=== PATIENT | female | born 1940 | race Caucasian/White ===

== ENCOUNTER 2018-03-15 09:23 | Emergency (ER) | payer MEDICARE ==
[2018-03-15 09:41] VITALS: BP 138/70
[2018-03-15] MEDS ORDERED: RABIES VACCINE 2.5 UNIT SYRINGE IM ONE (10:01)
--- NOTE | 2018-03-15 10:18 | ED Physician Documentation ---
History of Present Illness - Stated complaint Stated Complaint: BAT IN HOME/RABIES SHOT - Chief complaint Chief Complaint: General - History obtained from History obtained from: Patient - History of Present Illness Timing: How many days ago (2) - Additonal information Additional information: 77-year-old female who [place] in a [place] the [place] has had bats in her home and this is the fourth exposure she has had. She indicates that 3 nights ago she was in her home and found a small bat flying in the home she chased up from one room to another and eventually the next day she was able to capture the bat under a towel and let it go outside. She does not know of any specific bite or scratch that she sustained what she was in the house for about 15 hours this bat that was quite small. She is called her physician who is recommended she come to get rabies preexposure prophylaxis. Review of Systems Constitutional: denies: Fever Eyes: denies: Decreased vision Ears: denies: Ear pain Nose: denies: Congestion Throat: denies: Sore throat Respiratory: denies: Dyspnea, Cough GI: denies: Nausea, Vomiting Skin: denies: Rash, Lesions, Abrasion (s), Bite / sting Musculoskeletal: denies: Neck pain, Back pain, Extremity pain PD PAST MEDICAL HISTORY - Past Medical History Past Medical History: Yes Respiratory: Other Endocrine/Autoimmune: HyPOthyroidism Musculoskeletal: Osteoarthritis, Rheumatoid arthritis Other Past Medical History: NSIP - Past Surgical History Past Surgical History: Yes General: Gastric surgery 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 - Present Medications Home Medications: Ambulatory Orders Medication Instructions Recorded Confirmed Cholecalciferol (Vitamin D3) 03/15/18 [Vitamin D3] Glucosamine HCl/Chondroitin Agarwal 03/15/18 [Endur-Flex Sr Tablet] Leflunomide 10 mg PO DAILY 03/15/18 03/15/18 Levothyroxine [Synthroid] 03/15/18 Multivit with Calcium,Iron,Min 03/15/18 [Multiple Vitamins For Women] Mycophenolate Mofetil 250 mg PO BID 03/15/18 03/15/18 Ubidecarenone [Co Q-10] 03/15/18 Valacyclovir HCl [Valacyclovir] 1 gm PO DAILY 03/15/18 03/15/18 - Allergies Allergies/Adverse Reactions: Allergies Allergy/AdvReac Type Severity Reaction Status Date / Time ciprofloxacin [From Cipro] Allergy Hives Verified 03/15/18 09:41 Sulfa (Sulfonamide Allergy Anaphylaxis Verified 03/15/18 09:41 Antibiotics) - Social History Does the pt smoke?: No Smoking Status: Never smoker Does the pt drink ETOH?: Yes Does the pt have substance abuse?: No - Immunizations Immunizations are current?: Yes PD ED PE NORMAL - Vitals Vital signs reviewed: Yes (tachy and hypertensive ) - General General: Alert and oriented X 3, No acute distress, Well developed/nourished - HEENT HEENT: Atraumatic, PERRL, EOMI - Neck Neck: Supple, no meningeal sign - Respiratory Respiratory: No respiratory distress - Derm Derm: Normal color, Warm and dry, No rash - Extremities Extremities: No deformity, No edema - Neuro Neuro: Alert and oriented X 3, 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 She does not have a provoked attack or evidence of a scratch or bite. She does have exposure for more than 15 hours and was asleep part of that time. According to the CDC preexposure prophylaxis is recommended. She states that she has done everything she can to improve her house for bats and that the exposure rate has reduced but obviously not resolved. - Sepsis Event Vital Signs: Vital Signs - 24 hr 03/15/18 09:38 Temperature 36.4 C L Heart Rate 117 H Respiratory 18 Rate Blood Pressure 138/70 H O2 Saturation 92 Oxygen O2 Source Room air Departure - Departure Disposition: 01 Home, Self Care Clinical Impression: Exposure to bat without known bite Condition: Stable Instructions: Rabies Follow-Up: Brooke Marcial ARNP [Primary Care Provider] - Comments: Follow-up this week at the [facility] department here in [place] for a second dose of the rabies vaccination. Discharge Date/Time: 03/15/18 10:35
== END 2018-03-15 10:35 | disposition home or self-care (01) ==
LOC: ED 09:23
DX: Z20.3 Contact with and (suspected) exposure to rabies (principal)
CPT/HCPCS: 90471; 99283